=== PATIENT | female | born 1945 | race Caucasian/White ===

== ENCOUNTER 2017-01-02 18:33 | Emergency (ER) | payer OTHER ==
[~2017-01-02] VITALS: Ht 165.1 cm; Wt 45.0 kg
[~2017-01-02 18:33] MED LIST: ALBUTEROL17 GM IH; ALEVE220 M2 PO; AMBIEN10 MG PO; AMITIZA24 MICROGR PO; Ambien PO; BENZTROPINE ME0.5 MG PO; CLARITIN10 M3 PO; COGENTIN0.5 MG PO; Claritin,Alavart PO; PRILOSEC40 MG PO; SEROQUEL100 MG PO; SPIRIVA1 INHALATI IH; Tylenol Regular Stre PO; WELLBUTRIN SR150 MG PO; Wellbutrin XL PO
[2017-01-02 19:28] LABS: HEMATOCRIT 38.2 % (36.0-46.0); MCV 94.1 FL (83-99); MEAN PLAT.VOLUME 11.8 uM^3 (9.5-12.4); PLATELET COUNT 215 K/uL (156-360); RBC DIS.WIDTH-CV 13.6 % (11.8-14.6); RBC DIS.WIDTH-SD 47.2 % (39-53); RED BLOOD COUNT 4.06 M/uL (3.80-5.20); WHITE BLOOD COUNT 10.1 K/uL (4.1-10.2)
[2017-01-02 19:40] LABS: CHLORIDE 108 mEq/L (99-109); SODIUM 145 mEq/L (136-147)
[2017-01-02 19:42] LABS: GLUCOSE 109 mg/dL (70-99)
[2017-01-02 19:44] LABS: ANION GAP 12 MEQ/L (2-14); TOTAL BILIRUBIN 0.3 mg/dL (0.0-1.0)
[2017-01-02 19:46] LABS: ALKALINE PHOSPHATASE 299 IU/L (3-129); GFR ESTIMATE (CALCULATED) 58 mL/min/
[2017-01-02 19:47] LABS: UREA NITROGEN (BUN) 31 mg/dL (9-23)
[2017-01-02 19:48] LABS: DIRECT BILIRUBIN 0.2 mg/dL (0.0-0.3)
[2017-01-02 19:49] LABS: LIPASE 21 U/L (1.0-51.0)
[2017-01-02] MEDS ORDERED: ZOFRAN4 MG PO (22:50)
[2017-01-03 00:20] VITALS: BP 110/99
== END 2017-01-03 00:41 | disposition home or self-care (01) ==
LOC: EME → EDBD 18:33 → EME 18:33
PROVIDERS: Emergency Medicine
DX: J44.0 Chronic obstructive pulmonary disease with (acute) lower respiratory infection (principal); J20.9 Acute bronchitis, unspecified; R11.2 Nausea with vomiting, unspecified; T36.3X5A Adverse effect of macrolides, initial encounter; K75.9 Inflammatory liver disease, unspecified; K21.9 Gastro-esophageal reflux disease without esophagitis; I10 Essential (primary) hypertension
CPT/HCPCS: 71010; 74176; 80048; 80076; 83690; 85027; 99281; 99285; J2405; J7030

== ENCOUNTER 2017-04-11 08:48 | Inpatient (IN) | payer OTHER ==
[~2017-04-11] VITALS: Ht 167.6 cm; Wt 36.3 kg
[~2017-04-11 08:48] MED LIST changes: +AMBIEN5 MG PO; -Ambien PO; +CLARITIN,ALAVAR10 MG PO; +COMBIVENT RESPIM4 GM IH; -Claritin,Alavart PO; +OMEPRAZOLE40 M1 PO; -PRILOSEC40 MG PO; +WELLBUTRIN XL150 MG PO; -Wellbutrin XL PO; +ZOFRAN4 MG PO
[2017-04-11 09:49] LABS: BASOPHIL COUNT 0.1 K/uL (0-0.1); EOSINOPHIL (%) 0.1 % (0-5); HEMATOCRIT 28.8 % (36.0-46.0); IMMATURE GRANULOCYTE (%) 0.6 % (0.0-0.7); IMMATURE GRANULOCYTE COUNT 0.1 K/uL; INSTRUMENT ABS NEUTROPHIL CT 11.5 K/uL; LYMPHOCYTE COUNT 1.3 K/uL (1.0-2.8); MCH 30.4 PG (29.0-34.0); MCHC 32.6 G/DL (30.0-36.0); MCV 93.2 FL (83-99); MEAN PLAT.VOLUME 13.2 uM^3 (9.5-12.4); MONOCYTE (%) 5.5 % (3-12); MONOCYTE COUNT 0.8 K/uL (0-0.8); NEUTROPHIL (%) 84.2 % (45-76); NEUTROPHIL COUNT 11.5 K/uL (1.8-6.4); PLATELET COUNT 217 K/uL (156-360); RBC DIS.WIDTH-CV 15.2 % (11.8-14.6); RBC DIS.WIDTH-SD 51.7 % (39-53); RED BLOOD COUNT 3.09 M/uL (3.80-5.20); WHITE BLOOD COUNT 13.7 K/uL (4.1-10.2)
[2017-04-11 09:58] LABS: CHLORIDE 104 mEq/L (99-109); POTASSIUM 3.4 mEq/L (3.7-5.4); SODIUM 144 mEq/L (136-147)
[2017-04-11 10:00] LABS: GLUCOSE 116 mg/dL (70-99)
[2017-04-11 10:01] LABS: ANION GAP 14 MEQ/L (2-14)
[2017-04-11 10:02] LABS: TOTAL BILIRUBIN 3.3 mg/dL (0.0-1.0)
[2017-04-11 10:04] LABS: ALKALINE PHOSPHATASE 503 IU/L (3-129); GFR ESTIMATE (CALCULATED) > 59 mL/min/
[2017-04-11 10:05] LABS: UREA NITROGEN (BUN) 38 mg/dL (9-23)
[2017-04-11 11:08] LABS: DIRECT BILIRUBIN 2.7 mg/dL (0.0-0.3)
[2017-04-11 13:50] VITALS: BP 122/68
[2017-04-11] MEDS ORDERED: SEROQUEL50 MG PO (15:07)
[2017-04-11] MEDS ORDERED: PROAIR HFA8.5 GM IH (15:08)
[2017-04-11] MEDS ORDERED: ATIVAN0.5 MG PO (15:08)
[2017-04-11] MEDS ORDERED: LEXAPRO10 MG PO (15:08)
[2017-04-11 17:20] VITALS: BP 127/83
[2017-04-11 18:02] LABS: HEMATOCRIT 27.5 % (36.0-46.0); MCH 29.9 PG (29.0-34.0); MCV 93.5 FL (83-99); MEAN PLAT.VOLUME 12.8 uM^3 (9.5-12.4); PLATELET COUNT 182 K/uL (156-360); RBC DIS.WIDTH-CV 15.2 % (11.8-14.6); RBC DIS.WIDTH-SD 52.1 % (39-53); RED BLOOD COUNT 2.94 M/uL (3.80-5.20); WHITE BLOOD COUNT 11.2 K/uL (4.1-10.2)
[2017-04-11 18:14] LABS: INTER. NORMALIZED RATIO 1.2; PROTHROMBIN TIME 13.5 SEC (10.2-12.9)
[2017-04-11 18:17] LABS: PTT 26.6 SEC (25-37)
[2017-04-11 18:25] LABS: IRON 24 MCG/DL (35-150)
[2017-04-11 18:42] LABS: FERRITIN 38 NG/ML (10-291)
[2017-04-11 21:00] VITALS: BP 100/78
[2017-04-11 23:46] LABS: HEMATOCRIT 24.7 % (36.0-46.0); MCH 30.9 PG (29.0-34.0); MCHC 33.6 G/DL (30.0-36.0); MCV 91.8 FL (83-99); MEAN PLAT.VOLUME 11.8 uM^3 (9.5-12.4); PLATELET COUNT 150 K/uL (156-360); RBC DIS.WIDTH-CV 15.3 % (11.8-14.6); RBC DIS.WIDTH-SD 50.9 % (39-53); RED BLOOD COUNT 2.69 M/uL (3.80-5.20); WHITE BLOOD COUNT 9.4 K/uL (4.1-10.2)
[2017-04-12] VITALS (13 sets, daily range): BP systolic 82–142; BP diastolic 42–95
[2017-04-12 06:10] LABS: HEMATOCRIT 23.3 % (36.0-46.0); MEAN PLAT.VOLUME 12.4 uM^3 (9.5-12.4); PLATELET COUNT 143 K/uL (156-360); RBC DIS.WIDTH-CV 15.6 % (11.8-14.6); RBC DIS.WIDTH-SD 53.5 % (39-53); RED BLOOD COUNT 2.48 M/uL (3.80-5.20); WHITE BLOOD COUNT 7.9 K/uL (4.1-10.2)
[2017-04-12 06:49] LABS: ALKALINE PHOSPHATASE 357 IU/L (3-129); AMYLASE 46 IU/L (1-118); ANION GAP 9 MEQ/L (2-14); CHLORIDE 112 MEQ/L (99-109); GFR ESTIMATE (CALCULATED) > 59 mL/min/; LIPASE 40 U/L (1.0-51.0); POTASSIUM 3.9 MEQ/L (3.7-5.4); SAMPLE HEMOLYSIS CHECK 0; SAMPLE ICTERIC CHECK 0; SAMPLE LIPEMIA CHECK 0; SODIUM 146 MEQ/L (136-147); TOTAL BILIRUBIN 1.3 MG/DL (0.0-1.0); UREA NITROGEN (BUN) 29 mg/dL (9-23)
[2017-04-12 06:52] LABS: GLUCOSE 79 mg/dL (70-99)
[2017-04-12 07:07] LABS: GAMMA-GT 442 IU/L (4-73); IRON 32 MCG/DL (35-150)
[2017-04-12 07:56] LABS: FERRITIN 36 NG/ML (10-291)
[2017-04-13 04:43] VITALS: BP 85/56
[2017-04-13 05:00] LABS: BASOPHIL COUNT 0.1 K/uL (0-0.1); EOSINOPHIL (%) 4.6 % (0-5); EOSINOPHIL COUNT 0.4 K/uL (0-0.3); HEMATOCRIT 34.3 % (36.0-46.0); IMMATURE GRANULOCYTE (%) 0.3 % (0.0-0.7); INSTRUMENT ABS NEUTROPHIL CT 5.8 K/uL; LYMPHOCYTE COUNT 2.2 K/uL (1.0-2.8); MCH 30.6 PG (29.0-34.0); MCHC 33.5 G/DL (30.0-36.0); MCV 91.2 FL (83-99); MEAN PLAT.VOLUME 12.3 uM^3 (9.5-12.4); MONOCYTE COUNT 0.7 K/uL (0-0.8); NEUTROPHIL (%) 62.4 % (45-76); NEUTROPHIL COUNT 5.8 K/uL (1.8-6.4); PLATELET COUNT 168 K/uL (156-360); RBC DIS.WIDTH-CV 14.5 % (11.8-14.6); RBC DIS.WIDTH-SD 48.3 % (39-53); RED BLOOD COUNT 3.76 M/uL (3.80-5.20); WHITE BLOOD COUNT 9.3 K/uL (4.1-10.2)
[2017-04-13 05:16] LABS: CHLORIDE 106 mEq/L (99-109); POTASSIUM 4.3 mEq/L (3.7-5.4); SODIUM 144 mEq/L (136-147)
[2017-04-13 05:19] LABS: GLUCOSE 60 mg/dL (70-99)
[2017-04-13 05:20] LABS: ANION GAP 14 MEQ/L (2-14)
[2017-04-13 05:21] LABS: TOTAL BILIRUBIN 1.7 mg/dL (0.0-1.0)
[2017-04-13 05:22] LABS: ALKALINE PHOSPHATASE 409 IU/L (3-129)
[2017-04-13 05:23] LABS: GFR ESTIMATE (CALCULATED) 58 mL/min/
[2017-04-13 05:24] LABS: UREA NITROGEN (BUN) 22 mg/dL (9-23)
[2017-04-13 06:55] LABS: POINT-OF-CARE METER ID UU13113781
[2017-04-13 15:05] VITALS: BP 92/56
[2017-04-13 20:00] VITALS: BP 111/67
[2017-04-13 23:49] VITALS: BP 141/58
[2017-04-14 04:00] VITALS: BP 112/54
[2017-04-14 07:35] LABS: BASOPHIL COUNT 0.1 K/uL (0-0.1); EOSINOPHIL (%) 5.8 % (0-5); EOSINOPHIL COUNT 0.4 K/uL (0-0.3); HEMATOCRIT 39.1 % (36.0-46.0); IMMATURE GRANULOCYTE (%) 0.5 % (0.0-0.7); INSTRUMENT ABS NEUTROPHIL CT 3.4 K/uL; LYMPHOCYTE COUNT 1.7 K/uL (1.0-2.8); MCH 30.2 PG (29.0-34.0); MCHC 32.7 G/DL (30.0-36.0); MCV 92.2 FL (83-99); MONOCYTE (%) 8.2 % (3-12); MONOCYTE COUNT 0.5 K/uL (0-0.8); NEUTROPHIL COUNT 3.4 K/uL (1.8-6.4); PLATELET COUNT 170 K/uL (156-360); RBC DIS.WIDTH-CV 14.9 % (11.8-14.6); RBC DIS.WIDTH-SD 50.6 % (39-53); RED BLOOD COUNT 4.24 M/uL (3.80-5.20)
[2017-04-14 08:20] VITALS: BP 122/62
[2017-04-14 15:23] VITALS: BP 148/62
[2017-04-14] MEDS ORDERED: QUETIAPINE FUM100 MG PO (16:35)
== END 2017-04-14 19:12 | disposition home or self-care (01) | DRG 378 ==
LOC: EME 08:48 → 4EAST 11:30 → EDOF 11:30 → ENRESERV 12:32 → 4EAST 13:32
PROVIDERS: Family Medicine; Physician Assistant; Specialist
PROC: 30233N1 Transfusion of Nonautologous Red Blood Cells into Peripheral Vein, Percutaneous Approach (ICD-10-PCS; principal; 2017-04-12)
DX: K92.2 Gastrointestinal hemorrhage, unspecified (principal); D62 Acute posthemorrhagic anemia; D50.9 Iron deficiency anemia, unspecified; I95.9 Hypotension, unspecified; R64 Cachexia; Z68.1 Body mass index [BMI] 19.9 or less, adult; G24.01 Drug induced subacute dyskinesia; K80.20 Calculus of gallbladder without cholecystitis without obstruction; K21.9 Gastro-esophageal reflux disease without esophagitis; J44.9 Chronic obstructive pulmonary disease, unspecified; I10 Essential (primary) hypertension; G47.00 Insomnia, unspecified; K59.00 Constipation, unspecified; R00.0 Tachycardia, unspecified; R41.82 Altered mental status, unspecified; R74.8 Abnormal levels of other serum enzymes; Z51.5 Encounter for palliative care; Z66 Do not resuscitate; F32.9 Major depressive disorder, single episode, unspecified; F20.9 Schizophrenia, unspecified; Z87.891 Personal history of nicotine dependence; M19.90 Unspecified osteoarthritis, unspecified site
CPT/HCPCS: 74176; 80053; 80076; 81003; 82150; 82248; 82607; 82728; 82746; 82948; 82977; 83540; 83690; 84466; 85014; 85018; 85025; 85027; 85610; 85730; 86900; 86901; 86920; 94640; 99202; 99281; 99284; C9113; J1940; J3480; J7040; P9016

== ENCOUNTER 2017-08-01 18:51 | Inpatient (IN) | payer OTHER ==
[~2017-08-01] VITALS: Ht 152.4 cm; Wt 37.8 kg
[~2017-08-01 18:51] MED LIST changes: +ATIVAN0.5 MG PO; +LEXAPRO10 MG PO; +PROAIR HFA8.5 GM IH; +QUETIAPINE FUM100 MG PO; +SEROQUEL50 MG PO
[2017-08-01 19:52] LABS: BASOPHIL COUNT 0.1 K/uL (0-0.1); EOSINOPHIL (%) 5.4 % (0-5); EOSINOPHIL COUNT 0.5 K/uL (0-0.3); HEMATOCRIT 40.1 % (36.0-46.0); IMMATURE GRANULOCYTE (%) 0.5 % (0.0-0.7); IMMATURE GRANULOCYTE COUNT 0.1 K/uL; INSTRUMENT ABS NEUTROPHIL CT 6.5 K/uL; LYMPHOCYTE COUNT 2.2 K/uL (1.0-2.8); MCHC 32.4 G/DL (30.0-36.0); MCV 98.8 FL (83-99); MEAN PLAT.VOLUME 11.4 uM^3 (9.5-12.4); MONOCYTE (%) 6.6 % (3-12); MONOCYTE COUNT 0.7 K/uL (0-0.8); NEUTROPHIL COUNT 6.5 K/uL (1.8-6.4); PLATELET COUNT 164 K/uL (156-360); RBC DIS.WIDTH-CV 14.4 % (11.8-14.6); RED BLOOD COUNT 4.06 M/uL (3.80-5.20)
[2017-08-01 20:04] LABS: PROTHROMBIN TIME 10.9 SEC (10.2-12.9)
[2017-08-01 20:05] LABS: CHLORIDE 107 mEq/L (99-109); POTASSIUM 5.3 mEq/L (3.7-5.4); SODIUM 143 mEq/L (136-147)
[2017-08-01 20:07] LABS: GLUCOSE 89 mg/dL (70-99); PTT 27.7 SEC (25-37)
[2017-08-01 20:08] LABS: ANION GAP 8 MEQ/L (2-14)
[2017-08-01 20:09] LABS: TOTAL BILIRUBIN 0.2 mg/dL (0.0-1.0)
[2017-08-01 20:10] LABS: ALKALINE PHOSPHATASE 75 IU/L (3-129)
[2017-08-01 20:11] LABS: GFR ESTIMATE (CALCULATED) 52 mL/min/
[2017-08-01 20:12] LABS: UREA NITROGEN (BUN) 28 mg/dL (9-23)
[2017-08-02 00:45] VITALS: BP 111/71
== END 2017-08-02 04:20 | DRG 535 ==
LOC: EME 18:51 → EDOF 22:32 → ENRESERV 22:54 → 3EAST 08-02 00:20
PROVIDERS: Emergency Medicine
DX: S72.011A Unspecified intracapsular fracture of right femur, initial encounter for closed fracture (principal); I21.9 Acute myocardial infarction, unspecified; W18.30XA Fall on same level, unspecified, initial encounter; Y92.10 Unspecified residential institution as the place of occurrence of the external cause; J44.9 Chronic obstructive pulmonary disease, unspecified; F20.9 Schizophrenia, unspecified; R64 Cachexia; Z68.1 Body mass index [BMI] 19.9 or less, adult; R09.02 Hypoxemia; I10 Essential (primary) hypertension; G24.01 Drug induced subacute dyskinesia; K21.9 Gastro-esophageal reflux disease without esophagitis; K59.00 Constipation, unspecified; F10.10 Alcohol abuse, uncomplicated; F32.9 Major depressive disorder, single episode, unspecified; Z66 Do not resuscitate; Z51.5 Encounter for palliative care
CPT/HCPCS: 71010; 73502; 80053; 85025; 85610; 85730; 86850; 86900; 86901; 94640; 99281; 99285; J2270; J2405